=== PATIENT | male | born 1975 | race Caucasian/White ===

== ENCOUNTER 2017-10-06 14:37 | Emergency (ER) | payer OTHER ==
--- NOTE | 2017-10-06 15:20 | EDPHY ---
H & P Stated Complaint: etoh binge -feeling suicidal " i cant stop drinking" - Medical/Surgical History Hx Asthma: No Hx Chronic Respiratory Disease: No Hx Diabetes: No Hx Cardiac Disease: No Hx Renal Disease: No Hx Cirrhosis: No Hx Alcoholism: No Hx HIV/AIDS: No Hx Splenectomy or Spleen Trauma: No Other PMH: NE 07/04 - Social History Smoking Status: Never smoked Time Seen by Provider: 10/06/17 15:05 Constitutional: Initial Vital Signs Temperature (C) 37.0 C 10/06/17 14:41 Heart Rate 101 H 10/06/17 14:41 Respiratory Rate 18 10/06/17 14:41 Blood Pressure 133/83 H 10/06/17 14:41 O2 Sat (%) 98 10/06/17 14:41 O2 Delivery Mode Room Air Allergies/Adverse Reactions: No Known Allergies Allergy (Verified 10/06/17 14:40) Home Medications: Medication Instructions Recorded Aspirin EC 81 mg (*) 10/06/17 Lipitor 10/06/17 Lisinopril 10/06/17 Medical Decision Making ED Course/Re-evaluation: CHIEF COMPLAINT: Wants to stop drinking HISTORY OF PRESENT ILLNESS: 42-year-old gentleman here with his significant other. He is a very significant binge drinker and has been doing it since he is a teenager. He also has familial hypertriglyceridemia and has an LAD stent placed 2 months ago in [place]. He denies any chest pain chest pressure any symptoms reminiscent of when he had a blockage. He is simply here because he has been on a 4 day binge her here, he has been depressed over the weekend somewhat suicidal according to significant other, and he wants to stop drinking which she cannot seem to do. He drank approximately a whole bottle of vodka this morning a whole bottle of 2 he will yesterday and numerous other bottles of wine etc. The patient has no complaints physically at this point he is slightly tearful. Patient states that he has been compliant with his Plavix since the stent REVIEW OF SYSTEMS: A 10 point review of systems was performed and is negative with the exception of the elements mentioned in the history of present illness. PHYSICAL EXAM: HR, BP, O2 Sat, RR. Temp noted General Appearance: Alert, well hydrated, appropriate, and non-toxic appearing. Head: Atraumatic without scalp tenderness or obvious injury Eyes: Pupils equal, round, reactive to light and accommodation, EOMI, no trauma , no injection. Ears: Clear bilaterally, no perforation, normal landmarks Nose: Atraumatic, no rhinorrhea, clear. Throat: There is no erythema or exudates, no lesions, normal tonsils, mucus membranes moist. Neck: Supple, 2+ carotid upstroke, nontender, no lymphadenopathy. Respiratory: No retractions, no distress, no wheezes, and no accessory muscle use. Lungs are clear to auscultation bilaterally. Cardiovascular: Regular rate and rhythm, no murmurs, rubs, or gallops. Bilateral carotid, radial, dorsalis pedis, and posterior tibial pulses intact. Good capillary refill all extremities. Gastrointestinal: Abdomen is soft, nontender, non-distended, no masses, no rebound, no guarding, no peritoneal signs. Musculoskeletal: Normal active ROM of all extremities, atraumatic. Neurological: Alert, appropriate, and interactive. The patient has normal DTRs and non-focal cranial nerves, motor, sensory, and cerebellar exam. Skin: No rashes, good turgor, no nodules on palpation. Past medical history: Hypertriglyceridemia, coronary artery disease, significant alcohol abuse and alcoholism Past surgical history: LAD stent 2 months ago Family history: Coronary artery disease hypertriglyceridemia alcoholism Social history: Here with significant other, denies cigarette use, very significant alcohol abuser, employed DIFFERENTIAL DIAGNOSIS: Includes but is not limited to: Alcohol withdrawal, alcohol abuse, drug abuse, drug withdrawal, MEDICAL DECISION MAKING: This patient is a very significant alcoholic who is here to get help. He has tried being sober in the past by just limiting alcohol but according to his significant other he has significant depression when that happens and then he starts to drink again. He usually goes in binges of 4-5 days at a time. The patient is requesting an inpatient rehab facility. ( [facility]) Other Provider: 2200 care assumed by me from Dr. Jimenez pending sober mental health evaluation. 0120 patient has been seen by the mental health log marker. They have discussed with Dr. Mike, psychiatry. Patient is levy for safety. Is not suicidal at this time. They provided numerous resources for both depression and his alcohol use. Plan will be for discharge for outpatient follow-up. (Qamar Preston) - Data Points Laboratory Results: Laboratory Results 10/06/17 15:45 10/06/17 15:45 Medications Given: Discontinued Medications Chlordiazepoxide (Librium 25 Mg Prepack#6) 1 btl TAKEHOME EDNOW ONE Stop: 10/07/17 01:28 Last Admin: 10/07/17 01:30 Dose: 1 btl Chlordiazepoxide HCl (Librium) 25 mg PO EDNOW ONE Stop: 10/06/17 22:11 Last Admin: 10/06/17 22:14 Dose: 25 mg Departure - Departure Disposition: Home, Routine, Self-Care Clinical Impression: Alcoholic intoxication Qualifiers: Complication of substance-induced condition: uncomplicated Qualified Code(s): F10.920 - Alcohol use, unspecified with intoxication, uncomplicated Alcohol dependence Qualifiers: Substance use status: with intoxication Complication of substance-induced condition: uncomplicated Qualified Code(s): F10.220 - Alcohol dependence with intoxication, uncomplicated Depression Qualifiers: Depression Type: major depressive disorder Major depression recurrence: recurrent Active/Remission status: currently active Major depression episode severity: moderate Qualified Code(s): F33.1 - Major depressive disorder, recurrent, moderate Condition: Good Instructions: Chlordiazepoxide (By mouth), Depression (ED), Alcohol Dependence (ED) Additional Instructions: Follow up at [facility] the addiction recovery [facility] for help with her depression and alcohol use. Return to the emergency department for increasing thoughts of suicide, hopelessness, hallucinations, or any other concerns. Referrals: [facility],. [Clinic] - As per Instructions [facility] 24 Hours [Outside] - As per Instructions
[2017-10-06 16:04] LABS: PLATELET COUNT 321 10^3/uL (150-400)
[2017-10-06] MEDS ORDERED: chlordiazePOXIDE 25 MG CAP PO ONE (22:10)
[2017-10-06 23:43] VITALS: RESP 16; TEMP 98.1; O2SAT 96
[2017-10-07] MEDS ORDERED: CHLORDIAZEPOXIDE 25MG PREPK#6 BTL TAKEHOME ONE (01:27)
[2017-10-07 01:34] VITALS: BP 110/86; PULSE 84
== END 2017-10-07 01:42 | disposition home or self-care (01) ==
PROC: GZ11ZZZ Psychological Tests, Personality and Behavioral (ICD-10-PCS; principal; 2017-10-06)
DX: F33.1 Major depressive disorder, recurrent, moderate (principal); F10.920 Alcohol use, unspecified with intoxication, uncomplicated; I25.10 Atherosclerotic heart disease of native coronary artery without angina pectoris; Z79.82 Long term (current) use of aspirin
CPT/HCPCS: 80305; G0480